=== PATIENT | female | born 1930 | race Caucasian/White ===

== ENCOUNTER → 2017-02-09 | Outpatient (CLI) | payer MEDICARE, BC ==
[~2017-02-09] MED LIST: AMBIEN5 MG PO; ANTIVERT12.5 MG PO; CARVEDILOL12.5 MG PO; CENTRUM SILVER1 EAC3 PO; CRESTOR20 MG PO; CYMBALTA60 MG PO; INDERAL10 MG PO; LEVOCETIRIZINE D5 MG PO; LEVOTHYROXINE75 MCG PO; MIRALAX17 GM PO; NASONEX17 GM NASLF; NITROSTAT0.4 MG SL; PROPRANOLOL HCL10 MG PO; SENNA-TIME S1 TAB PO; VITAMIN D31000 UNI1 PO; XARELTO20 MG PO
== END | disposition short-term general hospital (02) ==
LOC: CLCARD 10:06
DX: I25.10 Atherosclerotic heart disease of native coronary artery without angina pectoris (principal); E78.5 Hyperlipidemia, unspecified; E11.9 Type 2 diabetes mellitus without complications